=== PATIENT | male | born 1985 | race Caucasian/White ===

== ENCOUNTER → 2017-04-25 | Outpatient (CLI) | payer OTHER ==
--- NOTE | 2017-04-25 17:05 | RAD ---
MRA Brain History: Aphasia, altered mental status, nonresponsive Technique: 3-D [id number] MR angiography was performed of the brain. Comparison: None Contrast: None Findings: Determination of any degree of stenosis is based on NASCET criteria. There is some motion degradation. Both vertebral arteries constitute the basilar artery. There is visualization of segments of right PICA, left PICA not seen. There is visualization of bilateral AICAs, superior cerebellar arteries, and posterior communicating arteries. There is duplication of A2 and A3 segments. There is visualization of bilateral internal carotid arteries at the skull base. No aneurysm or significant focal stenosis is identified of the visualized intracranial vasculature. Impression: 1. No aneurysm or significant stenosis is identified of the visualized intracranial vasculature. Electronically signed by: Dionisio Hardin MD (04/25/2017 5:02 PM) [facility]
== END | disposition home or self-care (01) ==
LOC: MRI 14:50
PROVIDERS: ATTEND Physician Assistant
DX: G44.82 Headache associated with sexual activity (principal); R47.01 Aphasia; R41.82 Altered mental status, unspecified
CPT/HCPCS: 70544

== ENCOUNTER → 2017-05-01 | Outpatient (CLI) | payer OTHER ==
[~2017-05-01] MED LIST: GADOBUTROL 10 MMOL/10 ML VIAL IV ONE
--- NOTE | 2017-05-01 15:45 | RAD ---
EXAMINATION: Magnetic resonance imaging (MRI) of the brain and brainstem without and with contrast 05/01/2017 2:45 PM HISTORY: Recurring headaches TECHNIQUE: Multiplanar multi-weighted MRI of the brain and brainstem was performed without and with intravenous contrast using the general brain protocol. Contrast information: 10 mL Gadolinium based contrast COMPARISON: MRA brain April 25, 2017 FINDINGS: The scalp and calvarium are normal. The superior sagittal sinus demonstrates normal venous flow. The corpus callosum is normal in shape and signal intensity. The posterior fossa is unremarkable. There is an 8 x 5 mm T1 hyperintense, T2 mildly hyperintense nonenhancing focus within the central pituitary gland suggestive of a Rathke's cleft cyst. The brainstem and craniocervical junction are unremarkable. Diffusion weighted images reveal no hyperintensities to suggest acute cerebral infarction. The susceptibility weighted sequences reveal no evidence of acute or chronic hemorrhage. The ventricles are normal in size and position without evidence of hydrocephalus. There are no areas of abnormal contrast enhancement. The paranasal sinuses are normal. The visualized portions of the mastoids are unremarkable. The orbits appear normal. Normal flow voids are demonstrated in the carotid arteries and basilar artery. 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 No evidence for acute or subacute ischemia. Electronically signed by: Tamika Marte MD (05/01/2017 3:42 PM) [facility]
== END | disposition home or self-care (01) ==
LOC: MRI 16:02
PROVIDERS: ATTEND Physician Assistant
DX: G44.84 Primary exertional headache (principal)
CPT/HCPCS: 70553; A9585

== ENCOUNTER 2021-11-15 07:46 | Emergency (ER) | payer OTHER ==
[~2021-11-15] VITALS: Ht 182.9 cm; Wt 110.3 kg
[2021-11-15 08:00] VITALS: BP 159/89
--- NOTE | 2021-11-15 08:38 | RAD ---
EXAMINATION: XR KNEE _3 VIEWS_LT CLINICAL HISTORY: Left knee pain. TECHNIQUE: XR KNEE _3 VIEWS_LT Number of Images/Views: 3 COMPARISON: None FINDINGS: Joint spaces and alignment maintained. No acute fracture. Tiny suprapatellar enthesophyte. No focal s oft tissue swelling. IMPRESSION: No acute osseous abnormality. Electronically signed by: Bernardino Kaplan DO (11/15/2021 8:36 AM) [id number]
--- NOTE | 2021-11-15 09:02 | PHYS DOC ---
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 Awais here presents today after the other combative patient fell on top of the lateral aspect of his left knee. Patient states that he has pain with walking up the stairs and weight bearing. Review of Systems: Review of Systems: Constitutional: Denies fever or chills. [] Eyes: Denies change in visual acuity. [] HENT: Denies nasal congestion or sore throat. [] Respiratory: Denies cough or shortness of breath. [] Cardiovascular: Denies chest pain or edema. [] GI: Denies abdominal pain, nausea, vomiting, bloody stools or diarrhea. [] : Denies dysuria. [] Musculoskeletal: Left knee injury denies back pain or joint pain. [] Integument: Denies rash. [] Neurologic: Denies headache, focal weakness or sensory changes. [] Endocrine: Denies polyuria or polydipsia. [] Lymphatic: Denies swollen glands. [] Psychiatric: Denies depression or anxiety. [] Heart Score: C/O Chest Pain: No Risk Factors: Risk Factors: DM, Current or recent (<one month) smoker, HTN, HLP, family history of CAD, obesity. Risk Scores: Score 0 - 3: 2.5% MACE over next 6 weeks - Discharge Home Score 4 - 6: 20.3% MACE over next 6 weeks - Admit for Clinical Observation Score 7 - 10: 72.7% MACE over next 6 weeks - Early Invasive Strategies Allergies: Allergies: Allergies Coded Allergies Type Severity Reaction Last Updated Verified No Known Drug Allergies 11/15/21 No Physical Exam: PE: Constitutional: Well developed, well nourished, no acute distress, non-toxic appearance. [] HENT: Normocephalic, atraumatic, bilateral external ears normal, oropharynx moist, no oral exudates, nose normal. [] Eyes: PERRLA, EOMI, conjunctiva normal, no discharge. [] Neck: Normal range of motion, no tenderness, supple, no stridor. [] Cardiovascular:Heart rate regular rhythm, no murmur [] Lungs & Thorax: Bilateral breath sounds clear to auscultation [] Abdomen: Bowel sounds normal, soft, no tenderness, no masses, no pulsatile masses. [] Skin: Warm, dry, no erythema, no rash. [] Back: No tenderness, no CVA tenderness. [] Extremities: Patient has pain with valgus strain. Negative anterior and posterior drawer test. No needly block ballottement. No knee swelling. No tenderness, no cyanosis, no clubbing, ROM intact, no edema. [] Neurologic: Alert and oriented X 3, normal motor function, normal sensory function, no focal deficits noted. [] Psychologic: Affect normal, judgement normal, mood normal. [] Current Patient Data: Vital Signs: Vital Signs Date Time Temp Pulse Resp B/P (MAP) Pulse Ox O2 Delivery O2 Flow Rate FiO2 11/15/21 08:00 98.5 80 18 159/89 (112) 99 Room Air 98.5 EKG: EKG: [] Radiology/Procedures: Radiology/Procedures: [] EXAMINATION: XR KNEE _3 VIEWS_LT CLINICAL HISTORY: Left knee pain. TECHNIQUE: XR KNEE _3 VIEWS_LT Number of Images/Views: 3 COMPARISON: None FINDINGS: Joint spaces and alignment maintained. No acute fracture. Tiny suprapatellar enthesophyte. No focal soft tissue swelling. IMPRESSION: No acute osseous abnormality. Course & Med Decision Making: Course & Med Decision Making Pertinent Labs and Imaging studies reviewed. (See chart for details) [] Patient occupational health form was filled out. Patient has follow-up with orthopedics. Recommended an MRI return precautions were discussed Ramy Disclaimer: Ramy Disclaimer: This electronic medical record was generated, in whole or in part, using a voice recognition dictation system. Departure Departure Referrals: CALE LOPES MD (PCP) JAMIE MITCHELL DO Nov 15, 2021 09:02
== END 2021-11-15 09:06 | disposition home or self-care (01) ==
LOC: ER 07:46
DX: M25.562 Pain in left knee (principal); G89.11 Acute pain due to trauma; W18.39XA Other fall on same level, initial encounter; Y93.89 Activity, other specified; Y92.89 Other specified places as the place of occurrence of the external cause; Y99.8 Other external cause status
CPT/HCPCS: 73562; 99283